=== PATIENT | male | born 1950 | race Caucasian/White ===

== ENCOUNTER 2022-08-28 09:14 | Emergency (ER) | payer MEDICARE, BC ==
[2022-08-28] MEDS: HYDROmorphone 0.5 MG/0.5 ML Syringe IVPUSH ONE ×2 (09:56→10:26)
[2022-08-28] MEDS: Sodium Chloride 0.9% 10 ML Syringe FLUSH PRN (09:57)
[2022-08-28] MEDS: Ondansetron 4 MG/2 ML SDV IVPUSH ONE (09:57)
== END 2022-08-28 10:35 | disposition home or self-care (01) ==
LOC: DL.ED 09:14
DX: T83.038A Leakage of other urinary catheter, initial encounter (principal)
CPT/HCPCS: 96374; 96375; 99282; 99283; J1170; J2405; J3490